=== PATIENT | female | born 1960 | race Two or more races ===

== ENCOUNTER 2018-01-28 09:20 | Day surgery (SDC) | payer OTHER | END 2018-01-28 16:40 | disposition home or self-care (01) | LOC: CIR.AMB 09:20 | DX: N84.0 Polyp of corpus uteri (principal) ==

== ENCOUNTER 2020-04-18 11:11 | Outpatient (CLI) | payer OTHER | END 2020-04-18 11:12 | disposition home or self-care (01) | LOC: PPH VACUNA 11:11 | DX: Z23 Encounter for immunization (principal) ==

== ENCOUNTER 2020-08-16 06:07 | Day surgery (SDC) | payer OTHER | END 2020-08-16 10:00 | disposition home or self-care (01) | LOC: CIR.AMB 06:07 → SURH 10:00 → EDSTATUS 10:00 → CIR.AMB 11:30 | PROVIDERS: ATTEND Surgery Surgery of the Hand | DX: S68.113A Complete traumatic metacarpophalangeal amputation of left middle finger, initial encounter (principal); Z20.822 Contact with and (suspected) exposure to COVID-19 ==

== ENCOUNTER 2021-01-23 08:00 | Outpatient (CLI) | payer OTHER | END 2021-01-23 08:30 | disposition home or self-care (01) | LOC: PPH VACUNA 08:00 | PROVIDERS: ATTEND Emergency Medicine Pediatric Emergency Medicine | DX: Z23 Encounter for immunization (principal) ==

== ENCOUNTER 2021-08-31 08:10 | Outpatient (CLI) | payer OTHER | END 2021-08-31 08:40 | disposition home or self-care (01) | LOC: PPH VACUNA 08:10 | PROVIDERS: ATTEND Emergency Medicine Pediatric Emergency Medicine | DX: Z23 Encounter for immunization (principal) ==

== ENCOUNTER 2022-07-29 07:25 | Outpatient (CLI) | payer OTHER | END 2022-07-29 07:37 | disposition home or self-care (01) | LOC: RAD 07:25 | DX: R05.3 Chronic cough (principal) ==